=== PATIENT | female | born 1990 | race Caucasian/White ===

== ENCOUNTER 2021-01-17 10:30 | Emergency (ER) | payer OTHER ==
[2021-01-17 10:35] VITALS: BP 122/82; PULSE 89; TEMP 97.6; BMI 20.9
[2021-01-17] MEDS ORDERED: IPRATROPIUM BR 0.02% 0.5 MG/2.5 ML VIAL.NEB. NEB ONE (10:48)
[2021-01-17] MEDS ORDERED: predniSONE 20 MG TABLET (UD) PO ONE (10:48)
[2021-01-17] MEDS ORDERED: ALBUTEROL SO4 2.5/IPRATROPIUM 0.5 INH SOL 3 ML VIAL.NEB. NEB ONE ×2 (10:51→10:52)
[2021-01-17] MEDS ORDERED: predniSONE 20 MG TABLET (UD) ONE (10:52)
[2021-01-17] MEDS ORDERED: ALBUTEROL SO4 0.083% IH SOL 2.5 MG/3 ML VIAL.NEB. NEB SCH (11:00)
[2021-01-18 13:06] LABS: SARS-CoV-2 NAA Not Detected (Not Detected)
== END 2021-01-17 11:50 | disposition home or self-care (01) ==
LOC: JER 10:30
PROC: 3E0F7GC Introduction of Other Therapeutic Substance into Respiratory Tract, Via Natural or Artificial Opening (ICD-10-PCS; principal; 2021-01-17)
DX: J45.901 Unspecified asthma with (acute) exacerbation (principal)
CPT/HCPCS: 99284-25; C9803; U0003; U0005

== ENCOUNTER 2021-09-26 11:04 | Emergency (ER) | payer OTHER ==
[2021-09-26 11:22] VITALS: PULSE 99; TEMP 98.1; BMI 21.9
[2021-09-26 11:28] VITALS: BP 128/54
== END 2021-09-26 16:22 | disposition home or self-care (01) ==
LOC: JER 11:04
DX: J45.901 Unspecified asthma with (acute) exacerbation (principal); R05.1 Acute cough; R09.81 Nasal congestion
CPT/HCPCS: 99283-25; C9803; U0003; U0005

== ENCOUNTER 2021-12-05 10:45 | Emergency (ER) | payer OTHER ==
[2021-12-05 10:56] VITALS: BP 114/68; PULSE 92; TEMP 98.1; BMI 24.4
[2021-12-05] MEDS ORDERED: DEXAMETHASONE SOD PHOSPHATE 10 MG/1 ML VIAL IM ONE (12:07)
[2021-12-05] MEDS ORDERED: ALBUTEROL SO4 HFA INHALER IH ONE ×2 (12:07→12:58)
[2021-12-05] MEDS ORDERED: DEXAMETHASONE SOD PHOSPHATE 10 MG/1 ML VIAL ONE (12:58)
== END 2021-12-05 13:07 | disposition home or self-care (01) ==
LOC: JER 10:45
PROC: 3E023GC Introduction of Other Therapeutic Substance into Muscle, Percutaneous Approach (ICD-10-PCS; principal; 2021-12-05)
DX: L30.9 Dermatitis, unspecified (principal); J45.909 Unspecified asthma, uncomplicated
CPT/HCPCS: 99284-25; J1100